=== PATIENT | male | born 1985 | race American Indian/Alaskan Native ===

== ENCOUNTER 2020-02-24 10:11 | Emergency (ER) | payer SELFPAY ==
[2020-02-24 10:28] VITALS: BP 135/70
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
== END 2020-02-24 10:56 | disposition left against medical advice (07) ==
LOC: ED 10:11
DX: M79.602 Pain in left arm (principal); M25.512 Pain in left shoulder; Z53.21 Procedure and treatment not carried out due to patient leaving prior to being seen by health care provider

== ENCOUNTER 2020-11-30 20:54 | Emergency (ER) | payer SELFPAY | END 2020-11-30 21:59 | disposition left against medical advice (07) | LOC: ED 20:54 | DX: R03.0 Elevated blood-pressure reading, without diagnosis of hypertension (principal); Z53.21 Procedure and treatment not carried out due to patient leaving prior to being seen by health care provider ==

== ENCOUNTER 2020-12-01 05:43 | Emergency (ER) | payer SELFPAY | END 2020-12-01 05:50 | disposition left against medical advice (07) | LOC: ED 05:43 | DX: Z53.21 Procedure and treatment not carried out due to patient leaving prior to being seen by health care provider (principal) ==

== ENCOUNTER 2020-12-01 22:40 | Emergency (ER) | payer SELFPAY | END 2020-12-01 22:45 | disposition left against medical advice (07) | LOC: ED 22:40 ==

== ENCOUNTER 2020-12-02 07:29 | Emergency (ER) | payer SELFPAY ==
[2020-12-02] MEDS ORDERED: LORazepam 2 MG/ML VIAL IM ONE (07:30)
[2020-12-02] MEDS ORDERED: diphenhydrAMINE 50 MG/ML VIAL IM ONE (07:30)
[2020-12-02] MEDS ORDERED: HALOPERIDOL LACTATE 5 MG/1 ML INJ IM ONE (07:30)
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
[2020-12-02] MEDS ORDERED: HALOPERIDOL LACTATE 5 MG/1 ML INJ IM PRN (08:17)
[2020-12-02] MEDS ORDERED: LORazepam 2 MG/ML VIAL IM PRN (08:17)
[2020-12-02] MEDS ORDERED: diphenhydrAMINE 50 MG/ML VIAL IM PRN (08:17)
[2020-12-02 11:40] LABS: Basophils % (Auto) 0.3 % (0.0-1.8); Eosinophils % (Auto) 0.3 % (0.0-4.3); Hemoglobin 15.2 gm/dl (11.8-15.2); Lymphocytes # (Auto) 2.2 K/mm3 (1.2-5.4); Lymphocytes % (Auto) 20.8 % (13.4-35.0); Mean Corpuscular HGB Conc 35 % (32-34); Mean Corpuscular Volume 94 fl (84-94); Monocytes % (Auto) 9.6 % (0.0-7.3); Platelet Count 217 K/mm3 (140-440); Red Blood Count 4.69 M/mm3 (3.65-5.03); Red Cell Distribution Width 13.5 % (13.2-15.2)
[2020-12-02 11:44] LABS: Bilirubin,Urine NEG (Negative); Blood,Urine SM (Negative); Color,Urine Amber (Yellow); Mucus,Urine 3+ /HPF
[2020-12-02 11:49] LABS: Amphetamine Screen,Urine Negative; Benzodiazepines Screen,Urine Negative; Cocaine Screen,Urine Negative; Methadone Screen,Urine Negative; Opiate Screen,Urine Negative
[2020-12-02 11:55] LABS: Alanine Aminotransferase 33 units/L (7-56); Albumin 4.5 g/dL (3.9-5); BUN/Creatinine Ratio 9; Blood Urea Nitrogen 12 mg/dL (9-20); Calcium 9.5 mg/dL (8.4-10.2); Hemolysis Index 3
[2020-12-02 12:07] LABS: Cannabinoid Screen,Urine PRESUMPTIVE POSITIVE
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
[2020-12-02] MEDS ORDERED: QUEtiapine 25 MG TAB PO ONE (14:26)
[2020-12-02] MEDS ORDERED: QUEtiapine 25 MG TAB PO SCH (22:00)
--- NOTE | 2020-12-03 01:56 | Event Note ---
Date: 12/03/20 Patient with relatively new onset erratic behavior. Was asked to order a CAT scan of the head since the patient did not have a history of mental illness there is documented. CT was ordered at this time.
[2020-12-03 10:16] VITALS: BP 144/82
--- NOTE | 2020-12-03 10:45 | Event Note ---
Date: 12/03/20 Prior ER documentation reviewed and appreciated, nursing, psychiatric documentation reviewed and appreciated. Patient himself endorses no complaints, is smiling, getting out of the shower, and denies physical pain. A 1013 is recommended by the psychiatry team. A noncontrast CT scan of the brain is recommended/requested by the psychiatry team. I have added on a TSH. Laboratory studies are otherwise unremarkable. Patient ambulatory with a steady gait, in no acute distress, and denies physical pain. 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 12/03/2020; 12: [address] scan of the brain negative for acute findings. Patient had nausea and vomiting, which are now terminated. Therefore, CT scan abdomen pelvis was obtained, negative for acute findings. TSH within normal limits. The patient was agitated, and required medication to allow for acquisition of diagnostic studies. He remains medically suitable at this time for psychiatric evaluation, consultation, placement and disposition. No active vomiting at this time. 12/03/2020; 05: 40 p.m. The patient became agitated, and was able to physically open up the locked psychiatry holding door. He then proceeded to walk at the ambulance bay towards the street. He did not respond to instructions to return to the hospital. Nursing team to therefore contact local police department to bring this patient back to the emergency room. Vital Signs 12/02/20 12/02/20 12/03/20 08:30 21:00 10:16 Temperature 98.0 F 98.4 F 98.3 F Pulse Rate 90 80 90 Respiratory 20 18 20 Rate Blood Pressure 136/67 132/72 144/82 [Left] O2 Sat by Pulse 100 98 96 Oximetry Lab Results 12/02/20 12/02/20 12/02/20 Range/Units 07:48 11:15 11:15 WBC 10.5 (4.5-11.0) K/mm3 RBC 4.69 (3.65-5.03) M/mm3 Hgb 15.2 (11.8-15.2) gm/dl Hct 44.0 (35.5-45.6) % MCV 94 (84-94) fl MCH 32 (28-32) pg MCHC 35 H (32-34) % RDW 13.5 (13.2-15.2) % Plt Count 217 (140-440) K/mm3 Lymph % (Auto) 20.8 (13.4-35.0) % [place] % (Auto) 9.6 H (0.0-7.3) % Eos % (Auto) 0.3 (0.0-4.3) % Baso % (Auto) 0.3 (0.0-1.8) % Lymph # (Auto) 2.2 (1.2-5.4) K/mm3 [place] # (Auto) 1.0 H (0.0-0.8) K/mm3 Eos # (Auto) 0.0 (0.0-0.4) K/mm3 Baso # (Auto) 0.0 (0.0-0.1) K/mm3 Seg Neutrophils % 69.0 (40.0-70.0) % Seg Neutrophils # 7.3 (1.8-7.7) K/mm3 Sodium (137-145) mmol/L Potassium (3.6-5.0) mmol/L Chloride (98-107) mmol/L Carbon Dioxide (22-30) mmol/L Anion Gap mmol/L BUN (9-20) mg/dL Creatinine (0.8-1.3) mg/dL Estimated GFR ml/min BUN/Creatinine Ratio % Glucose (75-100) mg/dL Calcium (8.4-10.2) mg/dL Total Bilirubin (0.1-1.2) mg/dL AST (5-40) units/L ALT (7-56) units/L Alkaline Phosphatase (35-129) units/L Total Protein (6.3-8.2) g/dL Albumin (3.9-5) g/dL Albumin/Globulin Ratio % Urine Color [place] (Yellow) Urine Turbidity Clear (Clear) Urine pH 5.0 (5.0-7.0) Ur Specific [place] 1.029 (1.003-1.030) Urine Protein 100 mg/dl (Negative) mg/dL Urine Glucose (UA) Neg (Negative) mg/dL Urine Ketones 20 (Negative) mg/dL Urine Blood Sm (Negative) Urine Nitrite Neg (Negative) Urine Bilirubin Neg (Negative) Urine Urobilinogen 2.0 (<2.0) mg/dL Ur Leukocyte Esterase Neg (Negative) Urine WBC (Auto) 6.0 (0.0-6.0) /HPF Urine RBC (Auto) 3.0 (0.0-6.0) /HPF U Epithel Cells (Auto) < 1.0 (0-13.0) /HPF Urine Mucus 3+ /HPF Salicylates < 0.3 L (2.8-20.0) mg/dL Urine Opiates Screen Urine Methadone Screen Acetaminophen (10.0-30.0) ug/mL Ur Barbiturates Screen Ur Phencyclidine Scrn Ur Amphetamines Screen U Benzodiazepines Scrn Urine Cocaine Screen U Marijuana (THC) Screen Drugs of Abuse Note Plasma/Serum Alcohol (0-0.07) % Coronavirus (PCR) (Negative) 12/02/20 12/02/20 12/02/20 Range/Units 11:15 11:15 11:15 WBC (4.5-11.0) K/mm3 RBC (3.65-5.03) M/mm3 Hgb (11.8-15.2) gm/dl Hct (35.5-45.6) % MCV (84-94) fl MCH (28-32) pg MCHC (32-34) % RDW (13.2-15.2) % Plt Count (140-440) K/mm3 Lymph % (Auto) (13.4-35.0) % [place] % (Auto) (0.0-7.3) % Eos % (Auto) (0.0-4.3) % Baso % (Auto) (0.0-1.8) % Lymph # (Auto) (1.2-5.4) K/mm3 [place] # (Auto) (0.0-0.8) K/mm3 Eos # (Auto) (0.0-0.4) K/mm3 Baso # (Auto) (0.0-0.1) K/mm3 Seg Neutrophils % (40.0-70.0) % Seg Neutrophils # (1.8-7.7) K/mm3 Sodium 142 (137-145) mmol/L Potassium 4.4 (3.6-5.0) mmol/L Chloride 102.5 (98-107) mmol/L Carbon Dioxide 30 (22-30) mmol/L Anion Gap 14 mmol/L BUN 12 (9-20) mg/dL Creatinine 1.3 (0.8-1.3) mg/dL Estimated GFR > 60 ml/min BUN/Creatinine Ratio 9 % Glucose 88 (75-100) mg/dL Calcium 9.5 (8.4-10.2) mg/dL Total Bilirubin 0.80 (0.1-1.2) mg/dL AST 69 H (5-40) units/L ALT 33 (7-56) units/L Alkaline Phosphatase 71 (35-129) units/L Total Protein 7.2 (6.3-8.2) g/dL Albumin 4.5 (3.9-5) g/dL Albumin/Globulin Ratio 1.7 % Urine Color (Yellow) Urine Turbidity (Clear) Urine pH (5.0-7.0) Ur Specific [place] (1.003-1.030) Urine Protein (Negative) mg/dL Urine Glucose (UA) (Negative) mg/dL Urine Ketones (Negative) mg/dL Urine Blood (Negative) Urine Nitrite (Negative) Urine Bilirubin (Negative) Urine Urobilinogen (<2.0) mg/dL Ur Leukocyte Esterase (Negative) Urine WBC (Auto) (0.0-6.0) /HPF Urine RBC (Auto) (0.0-6.0) /HPF U Epithel Cells (Auto) (0-13.0) /HPF Urine Mucus /HPF Salicylates (2.8-20.0) mg/dL Urine Opiates Screen Urine Methadone Screen Acetaminophen 5.0 L (10.0-30.0) ug/mL Ur Barbiturates Screen Ur Phencyclidine Scrn Ur Amphetamines Screen U Benzodiazepines Scrn Urine Cocaine Screen U Marijuana (THC) Screen Drugs of Abuse Note Plasma/Serum Alcohol < 0.01 (0-0.07) % Coronavirus (PCR) (Negative) 12/02/20 12/02/20 Range/Units Unknown Unknown WBC (4.5-11.0) K/mm3 RBC (3.65-5.03) M/mm3 Hgb (11.8-15.2) gm/dl Hct (35.5-45.6) % MCV (84-94) fl MCH (28-32) pg MCHC (32-34) % RDW (13.2-15.2) % Plt Count (140-440) K/mm3 Lymph % (Auto) (13.4-35.0) % [place] % (Auto) (0.0-7.3) % Eos % (Auto) (0.0-4.3) % Baso % (Auto) (0.0-1.8) % Lymph # (Auto) (1.2-5.4) K/mm3 [place] # (Auto) (0.0-0.8) K/mm3 Eos # (Auto) (0.0-0.4) K/mm3 Baso # (Auto) (0.0-0.1) K/mm3 Seg Neutrophils % (40.0-70.0) % Seg Neutrophils # (1.8-7.7) K/mm3 Sodium (137-145) mmol/L Potassium (3.6-5.0) mmol/L Chloride (98-107) mmol/L Carbon Dioxide (22-30) mmol/L Anion Gap mmol/L BUN (9-20) mg/dL Creatinine (0.8-1.3) mg/dL Estimated GFR ml/min BUN/Creatinine Ratio % Glucose (75-100) mg/dL Calcium (8.4-10.2) mg/dL Total Bilirubin (0.1-1.2) mg/dL AST (5-40) units/L ALT (7-56) units/L Alkaline Phosphatase (35-129) units/L Total Protein (6.3-8.2) g/dL Albumin (3.9-5) g/dL Albumin/Globulin Ratio % Urine Color (Yellow) Urine Turbidity (Clear) Urine pH (5.0-7.0) Ur Specific [place] (1.003-1.030) Urine Protein (Negative) mg/dL Urine Glucose (UA) (Negative) mg/dL Urine Ketones (Negative) mg/dL Urine Blood (Negative) Urine Nitrite (Negative) Urine Bilirubin (Negative) Urine Urobilinogen (<2.0) mg/dL Ur Leukocyte Esterase (Negative) Urine WBC (Auto) (0.0-6.0) /HPF Urine RBC (Auto) (0.0-6.0) /HPF U Epithel Cells (Auto) (0-13.0) /HPF Urine Mucus /HPF Salicylates (2.8-20.0) mg/dL Urine Opiates Screen Negative Urine Methadone Screen Negative Acetaminophen (10.0-30.0) ug/mL Ur Barbiturates Screen Negative Ur Phencyclidine Scrn Negative Ur Amphetamines Screen Negative U Benzodiazepines Scrn Negative Urine Cocaine Screen Negative U Marijuana (THC) Screen Presumptive positive Drugs of Abuse Note Disclamer Plasma/Serum Alcohol (0-0.07) % Coronavirus (PCR) Negative (Negative) CT ABDOMEN AND PELVIS WITHOUT CONTRAST INDICATION: Nausea vomiting, THIS IS A BEHAVIORAL HEALTH PATIENT!!!. TECHNIQUE: Axial CT images were obtained through the abdomen and pelvis without IV contrast. All CT scans at this location are performed using CT dose reduction for ALARA by means of automated exposure control. COMPARISON: None available. FINDINGS: Degraded by mild respiratory motion artifact LOWER CHEST: No significant abnormality. LIVER: No significant abnormality. GALLBLADDER: No significant abnormality. BILE DUCTS: No significant abnormality. PANCREAS: No significant abnormality. SPLEEN: No significant abnormality. ADRENALS: No significant abnormality. RIGHT KIDNEY and URETER: No significant abnormality. LEFT KIDNEY and URETER: No significant abnormality. STOMACH and SMALL BOWEL: No significant abnormality. COLON: No significant abnormality. APPENDIX: Normal. PERITONEUM: No free fluid. No free air. No fluid collection. LYMPH NODES: No significant adenopathy. AORTA and ARTERIES: No significant abnormality. IVC and VEINS: No significant abnormality. URINARY BLADDER: No significant abnormality. REPRODUCTIVE ORGANS: No significant abnormality. ADDITIONAL FINDINGS: None. SKELETAL SYSTEM: Chronic bilateral L5 spondylolysis with grade 1 anterolisthesis and mild discogenic degenerative disease L5-S1. Mild heterotopic ossification distal right iliopsoas tendon image 171 likely from remote avulsive strain IMPRESSION: 1. No significant abnormality. 2. Chronic bilateral L5 spondylolysis with grade 1 anterolisthesis Signer Name: Danilo Crowe MD Signed: 12/03/2020 10:56 AM Workstation Name: [id number] CT HEAD WITHOUT CONTRAST INDICATION / CLINICAL INFORMATION: Abnormal behavior, combative, BEHAVIORAL HEALTH PATIENT!!!. TECHNIQUE: All CT scans at this location are performed using CT dose reduction for ALARA by means of automated exposure control. COMPARISON: None available. FINDINGS: Study is limited by motion artifact. HEMORRHAGE: None. EXTRA-AXIAL SPACES: Normal in size and morphology for the patient's age. VENTRICULAR SYSTEM: Normal in size and morphology for the patient's age. CEREBRAL PARENCHYMA: No significant abnormality. No acute territorial infarct. MIDLINE SHIFT / HERNIATION: None. CEREBELLUM / BRAINSTEM: No significant abnormality. ORBITS: Normal as visualized. SOFT TISSUES: No significant abnormality. SKULL: No significant abnormality. PARANASAL SINUSES / MASTOID AIR CELLS: Normal as visualized. ADDITIONAL FINDINGS: None. IMPRESSION: 1. No acute intracranial abnormality within the limits of this study.. Signer Name: Ishan Gonzalez MD Signed: 12/03/2020 10:55 AM Workstation Name: [id number]
[2020-12-03] MEDS ORDERED: ACETAMINOPHEN 325 MG TAB PO PRN (10:51)
[2020-12-03] MEDS ORDERED: ONDANSETRON 4 MG ODT TAB PO PRN (11:05)
[2020-12-03] MEDS ORDERED: ONDANSETRON 4 MG ODT TAB ONE (11:06)
--- NOTE | 2020-12-03 11:59 | Cat Scan Report ---
CT HEAD WITHOUT CONTRAST INDICATION / CLINICAL INFORMATION: Abnormal behavior, combative, BEHAVIORAL HEALTH PATIENT!!!. TECHNIQUE: All CT scans at this location are performed using CT dose reduction for ALARA by means of automated exposure control. COMPARISON: None available. FINDINGS: Study is limited by motion artifact. HEMORRHAGE: None. EXTRA-AXIAL SPACES: Normal in size and morphology for the patient's age. VENTRICULAR SYSTEM: Normal in size and morphology for the patient's age. CEREBRAL PARENCHYMA: No significant abnormality. No acute territorial infarct. MIDLINE SHIFT / HERNIATION: None. CEREBELLUM / BRAINSTEM: No significant abnormality. ORBITS: Normal as visualized. SOFT TISSUES: No significant abnormality. SKULL: No significant abnormality. PARANASAL SINUSES / MASTOID AIR CELLS: Normal as visualized. ADDITIONAL FINDINGS: None. IMPRESSION: 1. No acute intracranial abnormality within the limits of this study.. Signer Name: Ishan Gonzalez MD Signed: 12/03/2020 11:55 AM Workstation Name: [id number]
--- NOTE | 2020-12-03 12:00 | Cat Scan Report ---
CT ABDOMEN AND PELVIS WITHOUT CONTRAST INDICATION: Nausea vomiting, THIS IS A BEHAVIORAL HEALTH PATIENT!!!. TECHNIQUE: Axial CT images were obtained through the abdomen and pelvis without IV contrast. All CT scans at [facility] location are performed using CT dose reduction for ALARA by means of automated exposure control. COMPARISON: None available. FINDINGS: Degraded by mild respiratory motion artifact LOWER CHEST: No significant abnormality. LIVER: No significant abnormality. GALLBLADDER: No significant abnormality. BILE DUCTS: No significant abnormality. PANCREAS: No significant abnormality. SPLEEN: No significant abnormality. ADRENALS: No significant abnormality. RIGHT KIDNEY and URETER: No significant abnormality. LEFT KIDNEY and URETER: No significant abnormality. STOMACH and SMALL BOWEL: No significant abnormality. COLON: No significant abnormality. APPENDIX: Normal. PERITONEUM: No free fluid. No free air. No fluid collection. LYMPH NODES: No significant adenopathy. AORTA and ARTERIES: No significant abnormality. IVC and VEINS: No significant abnormality. URINARY BLADDER: No significant abnormality. REPRODUCTIVE ORGANS: No significant abnormality. ADDITIONAL FINDINGS: None. SKELETAL SYSTEM: Chronic bilateral L5 spondylolysis with grade 1 anterolisthesis and mild discogenic degenerative disease L5-S1. Mild heterotopic ossification distal right iliopsoas tendon image 171 lik carlee from remote avulsive strain IMPRESSION: 1. No significant abnormality. 2. Chronic bilateral L5 spondylolysis with grade 1 anterolisthesis Signer Name: Danilo Crowe MD Signed: 12/03/2020 11:56 AM Workstation Name: [id number]
--- NOTE | 2020-12-03 14:14 | Progress Note ---
Subjective Date of service: 12/03/20 Subjective Comment: Per Nurse Note: REVIEW OF SYSTEMS ROS cannot be reliably obtained from the patient due to his confusion MENTAL STATUS EXAMINATION General Appearance and Behavior: Age appropriate, good hygiene, wearing appropriate clothes, uncooperative polite with questioning. Cooperation: cooperative Psychomotor Behavior: Psychomotor agitation Mood: angry Affect and affective range: irritable Thought Process: circumstantial Thought Content: Paranoid Speech: Normal volume, Regular rate and rhythm Intellectual Functioning: Poor Suicidal Ideation: Denied Homicidal Ideation: Denied Impulse Control: impaired Insight and Judgment: limited Memory: memory impaired Attention:Distractible Orientation: Alert and oriented Diagnoses:Psychosis Current Visit: Yes Status: Acute RECOMMENDATIONS 1013 Start Seroquel 50mg po QHS Start Trazodone 50mg po qhs Start Vistaril 25mg po BID Risks, benefits and alternatives of medications discussed with the patient, questions answered and consent obtained from patient. PSYCHOTHERAPY: Supportive psychotherapy provided MEDICAL: Per primary team DELIRIUM PRECAUTIONS: Please re-orient patient frequently, keep lights on during the day, and minimize benzodiazepines and opiates as these medications could worsen patient's confusion. FLOOR FRAMER: Per medical team DISPOSITION: Recommend acute inpatient psychiatric hospitalization at this time FOLLOW-UP: Will follow Thank you for the consult. Please contact with any questions and/or concerns. Medications and Allergies Allergies Allergy/AdvReac Type Severity Reaction Status Date / Time No Known Allergies Allergy Unverified 02/24/20 10:24 Home Medications Medication Instructions Recorded Confirmed Last Taken Type No Known Home Medications [No 12/03/20 12/03/20 Unknown History Reported Home Medications] Active Meds: Active Medications Acetaminophen (Acetaminophen 325 Mg Tab) 650 mg PO Q6HR PRN PRN Reason: PAIN Diphenhydramine HCl (Diphenhydramine 50 Mg/Ml Vial) 50 mg IM Q6H PRN PRN Reason: Agitation Haloperidol Lactate (Haloperidol Lactate 5 Mg/1 Ml Inj) 10 mg IM Q8H PRN PRN Reason: Agitation Lorazepam (Lorazepam 2 Mg/Ml Vial) 2 mg IM Q8H PRN PRN Reason: Agitation Last Admin: 12/03/20 11:29 Dose: 2 mg Documented by: Ondansetron HCl (Ondansetron 4 Mg Odt Tab) 4 mg PO Q6HR PRN PRN Reason: Nausea Last Admin: 12/03/20 11:10 Dose: 4 mg Documented by: Quetiapine Fumarate (Quetiapine 25 Mg Tab) 50 mg PO QHS RENETTA Last Admin: 12/02/20 22:18 Dose: Not Given Documented by: Results - Results Labs/Vitals: Laboratory Last Values WBC 10.5 K/mm3 (4.5-11.0) 12/02/20 11:15 RBC 4.69 M/mm3 (3.65-5.03) 12/02/20 11:15 Hgb 15.2 gm/dl (11.8-15.2) 12/02/20 11:15 Hct 44.0 % (35.5-45.6) 12/02/20 11:15 MCV 94 fl (84-94) 12/02/20 11:15 MCH 32 pg (28-32) 12/02/20 11:15 MCHC 35 % (32-34) H 12/02/20 11:15 RDW 13.5 % (13.2-15.2) 12/02/20 11:15 Plt Count 217 K/mm3 (140-440) 12/02/20 11:15 Lymph % (Auto) 20.8 % (13.4-35.0) 12/02/20 11:15 [place] % (Auto) 9.6 % (0.0-7.3) H 12/02/20 11:15 Eos % (Auto) 0.3 % (0.0-4.3) 12/02/20 11:15 Baso % (Auto) 0.3 % (0.0-1.8) 12/02/20 11:15 Lymph # (Auto) 2.2 K/mm3 (1.2-5.4) 12/02/20 11:15 [place] # (Auto) 1.0 K/mm3 (0.0-0.8) H 12/02/20 11:15 Eos # (Auto) 0.0 K/mm3 (0.0-0.4) 12/02/20 11:15 Baso # (Auto) 0.0 K/mm3 (0.0-0.1) 12/02/20 11:15 Seg Neutrophils % 69.0 % (40.0-70.0) 12/02/20 11:15 Seg Neutrophils # 7.3 K/mm3 (1.8-7.7) 12/02/20 11:15 Sodium 142 mmol/L (137-145) 12/02/20 11:15 Potassium 4.4 mmol/L (3.6-5.0) 12/02/20 11:15 Chloride 102.5 mmol/L (98-107) 12/02/20 11:15 Carbon Dioxide 30 mmol/L (22-30) 12/02/20 11:15 Anion Gap 14 mmol/L 12/02/20 11:15 BUN 12 mg/dL (9-20) 12/02/20 11:15 Creatinine 1.3 mg/dL (0.8-1.3) 12/02/20 11:15 Estimated GFR > 60 ml/min 12/02/20 11:15 BUN/Creatinine Ratio 9 % 12/02/20 11:15 Glucose 88 mg/dL (75-100) 12/02/20 11:15 Calcium 9.5 mg/dL (8.4-10.2) 12/02/20 11:15 Total Bilirubin 0.80 mg/dL (0.1-1.2) 12/02/20 11:15 AST 69 units/L (5-40) H 12/02/20 11:15 ALT 33 units/L (7-56) 12/02/20 11:15 Alkaline Phosphatase 71 units/L (35-129) 12/02/20 11:15 Total Protein 7.2 g/dL (6.3-8.2) 12/02/20 11:15 Albumin 4.5 g/dL (3.9-5) 12/02/20 11:15 Albumin/Globulin Ratio 1.7 % 12/02/20 11:15 TSH 0.557 mlU/mL (0.270-4.200) 12/02/20 11:15 Urine Color [place]aitie (Yellow) 12/02/20 07:48 Urine Turbidity Clear (Clear) 12/02/20 07:48 Urine pH 5.0 (5.0-7.0) 12/02/20 07:48 Ur Specific [place] 1.029 (1.003-1.030) 12/02/20 07:48 Urine Protein 100 mg/dl mg/dL (Negative) 12/02/20 07:48 Urine Glucose (UA) Neg mg/dL (Negative) 12/02/20 07:48 Urine Ketones 20 mg/dL (Negative) 12/02/20 07:48 Urine Blood Sm (Negative) 12/02/20 07:48 Urine Nitrite Neg (Negative) 12/02/20 07:48 Urine Bilirubin Neg (Negative) 12/02/20 07:48 Urine Urobilinogen 2.0 mg/dL (<2.0) 12/02/20 07:48 Ur Leukocyte Esterase Neg (Negative) 12/02/20 07:48 Urine WBC (Auto) 6.0 /HPF (0.0-6.0) 12/02/20 07:48 Urine RBC (Auto) 3.0 /HPF (0.0-6.0) 12/02/20 07:48 U Epithel Cells (Auto) < 1.0 /HPF (0-13.0) 12/02/20 07:48 Urine Mucus 3+ /HPF 12/02/20 07:48 Salicylates < 0.3 mg/dL (2.8-20.0) L 12/02/20 11:15 Urine Opiates Screen Negative 12/02/20 Unknown Urine Methadone Screen Negative 12/02/20 Unknown Acetaminophen 5.0 ug/mL (10.0-30.0) L 12/02/20 11:15 Ur Barbiturates Screen Negative 12/02/20 Unknown Ur Phencyclidine Scrn Negative 12/02/20 Unknown Ur Amphetamines Screen Negative 12/02/20 Unknown U Benzodiazepines Scrn Negative 12/02/20 Unknown Urine Cocaine Screen Negative 12/02/20 Unknown U Marijuana (THC) Screen Presumptive positive 12/02/20 Unknown Drugs of Abuse Note Disclamer 12/02/20 Unknown Plasma/Serum Alcohol < 0.01 % (0-0.07) 12/02/20 11:15 Coronavirus (PCR) Negative (Negative) 12/02/20 Unknown Last Vital Signs Temp 98.3 F 12/03/20 10:16 Pulse 90 12/03/20 10:16 Resp 20 12/03/20 10:16 BP 144/82 12/03/20 10:16 Pulse Ox 96 12/03/20 10:16
== END 2020-12-03 17:36 | disposition left against medical advice (07) ==
LOC: ED 07:29
DX: F29 Unspecified psychosis not due to a substance or known physiological condition (principal); Z20.822 Contact with and (suspected) exposure to COVID-19; F12.90 Cannabis use, unspecified, uncomplicated; R94.6 Abnormal results of thyroid function studies; Z79.899 Other long term (current) drug therapy
CPT/HCPCS: 36415; 70450; 74176; 80053; 80307; 81001; 84443; 85025; 96372; 99284; J1200; J1630; J2060; U0003; 80320; G0480; Q0162

== ENCOUNTER 2020-12-03 19:34 | Emergency (ER) | payer MEDICAID ==
[2020-12-03] MEDS ORDERED: LORazepam 2 MG/ML VIAL IM ONE (19:45)
[2020-12-03] MEDS ORDERED: diphenhydrAMINE 50 MG/ML VIAL IM ONE (19:45)
[2020-12-03] MEDS ORDERED: ZIPRASIDONE MESYLATE 20 MG VIAL IM ONE (19:45)
[2020-12-03] MEDS ORDERED: LORazepam 2 MG/ML VIAL ONE (19:47)
[2020-12-03] MEDS ORDERED: diphenhydrAMINE 50 MG/ML VIAL ONE (19:47)
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
[2020-12-03] MEDS: traZODone 50 MG TAB PO SCH (22:21)
[2020-12-03] MEDS: hydrOXYzine PAMOATE 25 MG CAP PO SCH (22:21)
[2020-12-03] MEDS: QUEtiapine 25 MG TAB PO SCH (22:21)
[2020-12-04] MEDS ORDERED: HALOPERIDOL LACTATE 5 MG/1 ML INJ IM ONE (08:29)
[2020-12-04] MEDS ORDERED: LORazepam 2 MG/ML VIAL IM STA (08:30)
[2020-12-04] MEDS ORDERED: diphenhydrAMINE 50 MG/ML VIAL IM ONE (08:30)
[2020-12-04] MEDS ORDERED: LORazepam 2 MG/ML VIAL ONE (08:32)
[2020-12-04] MEDS ORDERED: LORazepam 2 MG/ML VIAL IV ONE (08:42)
[2020-12-04] MEDS ORDERED: KETAMINE 200 MG/20 ML INJ MDV IM ONE (09:14)
[2020-12-04] MEDS ORDERED: KETAMINE 500 MG/5 ML VIAL MDV ONE (09:19)
[2020-12-04] MEDS: hydrOXYzine PAMOATE 25 MG CAP PO SCH ×2 (09:34→21:58)
[2020-12-04] MEDS ORDERED: KETAMINE 500 MG/5 ML VIAL MDV IM ONE (10:00)
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
[2020-12-04] MEDS ORDERED: ZIPRASIDONE MESYLATE 20 MG VIAL IM ONE (18:09)
[2020-12-04] MEDS ORDERED: WATER FOR INJ Sterile (PF) 10 ML ONE (18:11)
[2020-12-04 18:45] LABS: Amphetamine Screen,Urine Negative; Benzodiazepines Screen,Urine Negative; Cocaine Screen,Urine Negative; Methadone Screen,Urine Negative; Opiate Screen,Urine Negative
[2020-12-04 19:24] LABS: Cannabinoid Screen,Urine Positive
[2020-12-04] MEDS: QUEtiapine 25 MG TAB PO SCH (21:58)
[2020-12-04] MEDS: traZODone 50 MG TAB PO SCH (21:58)
[2020-12-05] MEDS ORDERED: LORazepam 2 MG/ML VIAL IM ONE (08:53)
[2020-12-05] MEDS ORDERED: ZIPRASIDONE MESYLATE 20 MG VIAL IM ONE (08:53)
[2020-12-05] MEDS ORDERED: KETAMINE 200 MG/20 ML INJ MDV IM PRN (08:58)
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
[2020-12-05] MEDS ORDERED: KETAMINE 500 MG/5 ML VIAL MDV ONE (09:20)
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
[2020-12-05] MEDS: hydrOXYzine PAMOATE 25 MG CAP PO SCH ×2 (11:26→22:47)
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
[2020-12-05] MEDS: DIVALPROEX DR 250 MG TAB PO SCH ×2 (16:36→22:46)
[2020-12-05] MEDS ORDERED: diphenhydrAMINE 25 MG CAP PO PRN (16:36)
[2020-12-05] MEDS: LORazepam 2 MG/ML VIAL IM PRN (17:23)
[2020-12-05] MEDS: HALOPERIDOL LACTATE 5 MG/1 ML INJ IM PRN (17:24)
[2020-12-05] MEDS: traZODone 50 MG TAB PO SCH (22:46)
[2020-12-05] MEDS: QUEtiapine 25 MG TAB PO SCH (22:46)
[2020-12-06] MEDS ORDERED: ONDANSETRON 4 MG/2 ML INJ IM ONE (08:00)
[2020-12-06] MEDS ORDERED: ONDANSETRON 4 MG/2 ML INJ ONE (08:11)
[2020-12-06] MEDS: hydrOXYzine PAMOATE 25 MG CAP PO SCH ×2 (10:04→23:34)
[2020-12-06] MEDS: DIVALPROEX DR 250 MG TAB PO SCH (10:04)
[2020-12-06] MEDS: HALOPERIDOL LACTATE 5 MG/1 ML INJ IM PRN (10:06)
[2020-12-06] MEDS: LORazepam 2 MG/ML VIAL IM PRN (10:06)
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
--- NOTE | 2020-12-06 12:00 | Progress Note ---
Subjective - Reason for Consult Consult date: 12/06/20 Reason for consult: Psychosis - Chief Complaint Chief complaint: Patient was seen resting in the room today. During my interview with patient, he is calm and guarded. Patient is unable to state previous psychiatric diagnosis however, he states that he has had a least two inpatient psychiatric admissions. Patient is unable to recall any previous psychotropic medications that was prescribed for him but states " I take medications." The patient did not not want to answer certain question; when asked about suicidal/homicidal and hallucinations he became angry then asked this contract technical writer" what kind of question is that." RREVIEW OF SYSTEMS Constitutional: Negative for weight loss ENT: Negative for stridor Respiratory: Negative for cough or hemoptysis All other systems reviewed and are negative MENTAL STATUS EXAMINATION General Appearance and Behavior: Age appropriate, good hygiene, wearing appropriate clothes, uncooperative polite with questioning. Cooperation: Guarded Psychomotor Behavior: Within normal limits Mood: OK Affect and affective range: Reactive Thought Process: Impulsive Thought Content:Goal directed Speech: Normal Intellectual Functioning: Average Suicidal Ideation: Denied Homicidal Ideation: Denied hallucination: Denied Impulse Control: impaired Insight and Judgment: limited Memory: memory impaired Attention:Distractible Orientation: Alert and oriented Diagnoses:Schizophrenia F20.9 Current Visit: Yes Status: Acute RECOMMENDATIONS Continue 1013 Start Depakote 500mg po BID Start Seroquel 100mg po QHS ContinueTrazodone 50mg po qhs Continue Vistaril 25mg po BID Risks, benefits and alternatives of medications discussed with the patient, questions answered and consent obtained from patient. PSYCHOTHERAPY: Supportive psychotherapy provided MEDICAL: Per primary team DELIRIUM PRECAUTIONS: Please re-orient patient frequently, keep lights on during the day, and minimize benzodiazepines and opiates as these medications could worsen patient's confusion. AUDIO VISUAL ARTS DIRECTOR: Per medical team DISPOSITION: Recommend acute inpatient psychiatric hospitalization at this time FOLLOW-UP: Will follow Thank you for the consult. Please contact with any questions and/or concerns. Medications and Allergies Mental Status Exam - Vital signs Last Vital Signs Temp 98.4 F 12/06/20 10:13 Pulse 108 H 12/06/20 10:13 Resp 15 12/06/20 10:13 BP 144/101 12/06/20 10:13 Pulse Ox 94 12/06/20 10:13
[2020-12-06] MEDS ORDERED: QUEtiapine 100 MG TAB PO SCH (22:00)
[2020-12-06] MEDS: DIVALPROEX DR 500 MG TAB PO SCH (23:33)
[2020-12-06] MEDS: traZODone 50 MG TAB PO SCH (23:33)
[2020-12-07 08:15] VITALS: BP 148/89
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
[2020-12-07] MEDS: DIVALPROEX DR 500 MG TAB PO SCH (11:08)
[2020-12-07] MEDS: hydrOXYzine PAMOATE 25 MG CAP PO SCH (11:08)
--- NOTE | 2020-12-07 11:32 | Progress Note ---
Subjective - Reason for Consult Consult date: 12/07/20 Reason for consult: Psychosis - Chief Complaint Chief complaint: Patient was seen in the ED waiting area. During my interview with patient, he is calm. Per nurse noted, he has had no recent behavioral issues. Patient reports doing well. He was asking for his mother's phone number. He reports sleep and appetite as good. Patient denies any current suicidal thoughts and denies hallucinations of any sort. RREVIEW OF SYSTEMS Constitutional: Negative for weight loss ENT: Negative for stridor Respiratory: Negative for cough or hemoptysis All other systems reviewed and are negative MENTAL STATUS EXAMINATION General Appearance and Behavior: Age appropriate, good hygiene, wearing appropriate clothes, uncooperative polite with questioning. Cooperation: Guarded Psychomotor Behavior: Within normal limits Mood: "Good" Affect and affective range: Reactive Thought Process: congruent with stated mood Thought Content:Goal directed Speech: Normal Intellectual Functioning: Average Suicidal Ideation: Denied Homicidal Ideation: Denied hallucination: Denied Impulse Control: impaired Insight and Judgment: limited Memory: memory impaired Attention:Distractible Orientation: Alert and oriented Diagnoses:Schizophrenia F20.9 Current Visit: Yes Status: Acute RECOMMENDATIONS DC 1013 Continue Depakote 500mg po BID Continue Seroquel 100mg po QHS ContinueTrazodone 50mg po qhs Continue Vistaril 25mg po BID Risks, benefits and alternatives of medications discussed with the patient, questions answered and consent obtained from patient. PSYCHOTHERAPY: Supportive psychotherapy provided MEDICAL: Per primary team DELIRIUM PRECAUTIONS: Please re-orient patient frequently, keep lights on during the day, and minimize benzodiazepines and opiates as these medications could worsen patient's confusion. ACCOUNTS RECEIVABLE ACCOUNTANT: Per medical team DISPOSITION: Do not recommend acute inpatient psychiatric hospitalization at this time. The patient understands that if suicidal ideas, homicidal ideas, or any e ndangering thoughts/behaviors arise, they should immediately seek emergent assistance including but not limited to crisis hotline and emergency room. Follow up with out patient within 7 days or sooner. FOLLOW-UP: Will sign off. Thank you for the consult. Please contact with any questions and/or concerns. Medications and Allergies Mental Status Exam - Vital signs Last Vital Signs Temp 98.3 F 12/07/20 08:13 Pulse 80 12/07/20 08:13 Resp 18 12/07/20 08:13 BP 148/89 12/07/20 08:13 Pulse Ox 100 12/07/20 08:13
== END 2020-12-07 14:46 | disposition home or self-care (01) ==
LOC: ED 19:34
DX: F20.9 Schizophrenia, unspecified (principal); Z20.822 Contact with and (suspected) exposure to COVID-19; R51.9 Headache, unspecified; R10.9 Unspecified abdominal pain; Z79.899 Other long term (current) drug therapy
CPT/HCPCS: 36415; 70450; 74176; 80053; 80307; 81001; 84443; 85025; 96372; 96374; 99284; J1200; J1630; J2060; J2405; J3486; Q0177; U0003; 80320; G0480; Q0162